=== PATIENT | female | born 1970 | race Caucasian/White ===

== ENCOUNTER → 2019-07-01 | Outpatient (CLI) | payer OTHER | LOC: SJCVCIMAG 16:12 | DX: R53.83 Other fatigue (principal); R07.89 Other chest pain; E78.5 Hyperlipidemia, unspecified ==

== ENCOUNTER → 2019-07-05 | Outpatient (CLI) | payer OTHER | LOC: CAT 14:24 → LAB 14:24 | DX: R07.9 Chest pain, unspecified (principal); R06.02 Shortness of breath ==

== ENCOUNTER → 2019-07-05 | Outpatient (CLI) | payer OTHER | LOC: CAT 15:54 | DX: Z13.6 Encounter for screening for cardiovascular disorders (principal) ==